=== PATIENT | male | born 1945 | race Two or more races ===

== ENCOUNTER 2020-04-10 20:27 | Observation (INO) | payer MEDICAID, MEDICARE, OTHER ==
[~2020-04-10] VITALS: Ht 165.1 cm; Wt 69.0 kg
[2020-04-10] MEDS ORDERED: CEFTRIAXONE PMX 1GM/50ML 50 ML IV ONE (21:00)
[2020-04-10] MEDS ORDERED: VANCOMYCIN PER PHARMACY MC PRN ×2 (21:00→23:00)
[2020-04-10] MEDS ORDERED: MORPHINE SULFATE 4 MG/ML, 1ML IVPush PRN (21:00)
[2020-04-10] MEDS ORDERED: ONDANSETRON 2MG/ML, 2ML IVPush ONE (21:00)
[2020-04-10] MEDS ORDERED: ONDANSETRON 2MG/ML, 2ML ONE (21:25)
[2020-04-10] MEDS ORDERED: CEFTRIAXONE PMX 1GM/50ML 50 ML ONE (21:25)
[2020-04-10] MEDS ORDERED: MORPHINE SULFATE 4 MG/ML, 1ML ONE (21:26)
[2020-04-10] MEDS ORDERED: VANCOMYCIN 1,700 MG in SODIUM CHLORIDE 0.9% 250 ML IV ONE (21:30)
[2020-04-10 21:32] LABS: BASOPHILS % (AUTO) 0 % (0-1); EOSINOPHILS % (AUTO) 1 % (1-7); LYMPHOCYTES % (AUTO) 13 % (22-44); MEAN CORPUSCULAR HEMOGLOBIN 34.3 pg (27.5-34.5); MEAN CORPUSCULAR HGB CONC 34.2 g/dL (33.2-36.2); MEAN PLATELET VOLUME 9.4 fL (7.4-10.4); MONOCYTES % (AUTO) 15 % (2-9); NEUTROPHILS % (AUTO) 71 % (42-75); PLATELET COUNT 180 x10^3/uL (130-400); RED BLOOD COUNT 3.61 x10^6/uL (4.38-5.82); RED CELL DISTRIBUTION WIDTH 13.8 % (9.4-14.8)
[2020-04-10 21:36] LABS: MD NO
[2020-04-10 21:38] LABS: ALBUMIN 3.9 g/dL (3.4-5.0); ANION GAP 8 mmol/L (5-15); CALCIUM 8.8 mg/dL (8.5-10.1); CHLORIDE 107 mmol/L (98-107); CREATININE 0.84 mg/dL (0.7-1.3)
[2020-04-10] MEDS ORDERED: SIMV40TA20 PO (21:58)
[2020-04-10] MEDS ORDERED: ASPI-963 PO (21:58)
[2020-04-10] MEDS ORDERED: IBUP-1902 PO (21:58)
[2020-04-10] MEDS ORDERED: OMEP-110 PO (21:58)
[2020-04-10] MEDS ORDERED: METF500T17 PO (21:58)
[2020-04-10] MEDS ORDERED: HYDR-3237 PO (21:58)
[2020-04-10] MEDS ORDERED: LIDO700A20 TD (21:58)
[2020-04-10] MEDS ORDERED: LOSA50TA14 PO (21:58)
[2020-04-10] MEDS ORDERED: SENN1TAB94 PO (21:58)
--- NOTE | 2020-04-10 22:26 | NUR ---
HOSPITALIST AT BEDSIDE WITH RN LOSS PREVENTION AND SAFETY MANAGER, REPORT CALLED TO [facility] ON FLOOR, READY TO RECIEVE PT.
[2020-04-10] MEDS ORDERED: SODIUM CHLORIDE NASAL SPRAY 45ML BOTTLE NAS PRN (22:30)
[2020-04-10] MEDS ORDERED: ENALAPRILAT 1.25 MG/ML, 2ML IVPush PRN (23:00)
[2020-04-10] MEDS ORDERED: ACETAMINOPHEN 325 MG TABLET PO PRN (23:00)
[2020-04-10] MEDS ORDERED: LABETALOL 5MG/ML, 20ML IVPush PRN (23:00)
[2020-04-10] MEDS ORDERED: DEXTROSE 4 GM TAB.CHEW PO PRN (23:00)
[2020-04-10] MEDS ORDERED: DEXTROSE 50%, 50ML SYRINGE IVPush PRN (23:00)
[2020-04-10] MEDS ORDERED: GLUCAGON 1 MG IM PRN (23:00)
[2020-04-10 23:18] VITALS: BP 125/70
[2020-04-10] MEDS ORDERED: PHARMACOKINETIC MONITORING MC PRN (23:30)
[2020-04-11 03:14] VITALS: BP 105/57
[2020-04-11 06:30] VITALS: BP 113/61
[2020-04-11] MEDS: INSULIN LISPRO 100 UNITS/ML, PEN SQ-INSULIN SCH ×2 (07:00→10:23)
[2020-04-11] MEDS: HEPARIN 5,000 UNITS/ML, 1ML SQ SCH ×2 (08:24)
[2020-04-11] MEDS ORDERED: ASPIRIN 81 MG TABLET EC PO SCH (09:00)
[2020-04-11] MEDS ORDERED: LOSARTAN 50MG TABLET PO SCH (09:00)
[2020-04-11] MEDS ORDERED: OMEPRAZOLE 20 MG CAPSULE.DR PO SCH (09:00)
[2020-04-11] MEDS ORDERED: SENNA/DOCUSATE TABLET PO SCH (09:00)
[2020-04-11] MEDS ORDERED: SODIUM CHLORIDE FLUSH 10ML SYR IVF SCH (09:00)
[2020-04-11] MEDS ORDERED: SULF1TAB24 PO (10:47)
[2020-04-11] MEDS ORDERED: SIMVASTATIN 40 MG TABLET PO SCH (21:00)
== END 2020-04-11 12:25 | disposition home or self-care (01) ==
LOC: ED 21:34 → INTOOBSV 22:45 → EDIP 22:45 → 4NE 22:47
PROVIDERS: ADMIT Student in an Organized Health Care Education/Training Program; ATTEND Student in an Organized Health Care Education/Training Program
DX: L03.114 Cellulitis of left upper limb (principal); E11.9 Type 2 diabetes mellitus without complications; C90.00 Multiple myeloma not having achieved remission; I10 Essential (primary) hypertension; E78.5 Hyperlipidemia, unspecified; K21.9 Gastro-esophageal reflux disease without esophagitis; D84.9 Immunodeficiency, unspecified; Z79.84 Long term (current) use of oral hypoglycemic drugs; Z79.899 Other long term (current) drug therapy; Z86.14 Personal history of Methicillin resistant Staphylococcus aureus infection; Z79.82 Long term (current) use of aspirin
CPT/HCPCS: 36415; 80048; 82040; 82962; 85025; 87040; 96365; 96366; 96368; 96372; 96375; 99284; G0378; J0696; J1644; J2270; J2405; J3370; J7050

== ENCOUNTER 2020-05-15 14:05 | Outpatient (CLI) | payer MEDICARE ==
[~2020-05-15 14:05] MED LIST: ASPI-963 PO; HYDR-3237 PO; IBUP-1902 PO; LIDO700A20 TD; LOSA50TA14 PO; METF500T17 PO; OMEP-110 PO; SENN1TAB94 PO; SIMV40TA20 PO; SULF1TAB24 PO
== END 2020-05-15 23:59 | disposition home or self-care (01) ==
LOC: RAD 14:05
PROVIDERS: ATTEND Specialist
DX: C90.00 Multiple myeloma not having achieved remission (principal); I82.729 Chronic embolism and thrombosis of deep veins of unspecified upper extremity

== ENCOUNTER → 2020-06-22 | Outpatient (CLI) | payer MEDICARE ==
[~2020-06-22] MED LIST changes: +SULF-23 PO; -SULF1TAB24 PO
== END | disposition home or self-care (01) ==
LOC: RAD 14:32
PROVIDERS: ATTEND Specialist
DX: Z51.11 Encounter for antineoplastic chemotherapy (principal); C90.00 Multiple myeloma not having achieved remission; M79.605 Pain in left leg; Z79.899 Other long term (current) drug therapy

== ENCOUNTER 2020-06-25 07:34 | Emergency (ER) | payer MEDICARE ==
[~2020-06-25] VITALS: Ht 167.6 cm; Wt 69.3 kg
[2020-06-25 07:38] VITALS: BP 140/68
== END 2020-06-25 08:57 | disposition home or self-care (01) ==
LOC: ED 08:10
DX: J34.0 Abscess, furuncle and carbuncle of nose (principal); E11.9 Type 2 diabetes mellitus without complications; I10 Essential (primary) hypertension
CPT/HCPCS: 82962; 99282; 99283

== ENCOUNTER 2020-06-27 20:25 | Emergency (ER) | payer MEDICARE ==
[~2020-06-27] VITALS: Ht 165.1 cm; Wt 76.9 kg
--- NOTE | 2020-06-27 21:20 | NUR ---
Ender seen here and told he has a sinus infection but today still can't breathe. PT AMBULATE FROM LOBBY TO BED WITH STEADY GAIT. POSTIONED TO COMFORT. ATTACHED TO MONITORS. VSS. MAE. AWAITING ORDERS.
--- NOTE | 2020-06-27 21:24 | NUR ---
DR. PERRY TO BEDSIDE FOR EVALUATION WITH INTERPERTER.
[2020-06-27 22:06] LABS: BASOPHILS % (AUTO) 2 % (0-1); EOSINOPHILS % (AUTO) 3 % (1-7); LYMPHOCYTES % (AUTO) 33 % (22-44); MEAN CORPUSCULAR HEMOGLOBIN 33.9 pg (27.5-34.5); MEAN CORPUSCULAR HGB CONC 33.5 g/dL (33.2-36.2); MEAN PLATELET VOLUME 9.4 fL (7.4-10.4); MONOCYTES % (AUTO) 27 % (2-9); NEUTROPHILS % (AUTO) 35 % (42-75); PLATELET COUNT 158 x10^3/uL (130-400); RED CELL DISTRIBUTION WIDTH 13.6 % (9.4-14.8)
[2020-06-27 22:11] LABS: MD NO
[2020-06-27 22:12] LABS: ALANINE AMINOTRANSFERASE 28 U/L (12-78); ALBUMIN 4.1 g/dL (3.4-5.0); ANION GAP 4 mmol/L (5-15); CALCIUM 8.8 mg/dL (8.5-10.1); CHLORIDE 106 mmol/L (98-107); CREATININE 0.87 mg/dL (0.7-1.3)
[2020-06-27 22:16] LABS: ALKALINE PHOSPHATASE 101 U/L (45-117); BILIRUBIN,TOTAL 0.3 mg/dL (0.2-1.0); TOTAL PROTEIN 6.9 g/dL (6.4-8.2); TROPONIN I < 0.015 ng/mL (0.000-0.045)
--- NOTE | 2020-06-27 22:40 | NUR ---
pt asleep with even and unlabored respirations. vss. jannn
[2020-06-28 00:11] VITALS: BP 145/76
--- NOTE | 2020-06-28 00:35 | NUR ---
Patient/Caregiver given discharge instructions and they have confirmed that they understand the instructions. Patient ambulatory with steady gait.
== END 2020-06-28 00:36 | disposition home or self-care (01) ==
LOC: ED 23:53
DX: R06.00 Dyspnea, unspecified (principal); R09.81 Nasal congestion; J00 Acute nasopharyngitis [common cold]; R07.9 Chest pain, unspecified; I10 Essential (primary) hypertension; E11.9 Type 2 diabetes mellitus without complications
CPT/HCPCS: 36415; 71045; 80053; 83880; 84484; 85025; 93005; 99285

== ENCOUNTER 2020-06-28 19:01 | Emergency (ER) | payer MEDICARE ==
[~2020-06-28] VITALS: Ht 165.1 cm; Wt 67.4 kg
--- NOTE | 2020-06-28 19:39 | NUR ---
PT. IS A & O X 4 WITH A GCS OF 15 WITH C/O BACK BOTTOM RIGHT MOUTH PAIN AFTER HAVING A TOOTH EXTRACTED TODAY. PT. IS RESTING WITHOUT CONCERNS. HE STATES HE IS TAKING AMOXICILLIN FOR ANTIBIOTICS. PT. IS AMBULATORY AND HAS NO FURTHER CONCERNS AT THIS TIME.
--- NOTE | 2020-06-28 20:19 | NUR ---
PT. WAS GIVEN AN ICE PACK FOR HIS LOWER JAW.
--- NOTE | 2020-06-28 20:49 | NUR ---
PT. WAS GIVEN DISCHARGE INSTRUCTIONS BY THE PROVIDER. UNDERSTANDING VERBALIZED ALONG WITH WILLINGNESS TO COMPLY. PT. WAS AMBULATORY TO THE DISCHARGE DESK.
[2020-06-28 20:51] VITALS: BP 130/70
== END 2020-06-28 20:53 | disposition home or self-care (01) ==
LOC: ED 19:51
DX: K08.89 Other specified disorders of teeth and supporting structures (principal); I10 Essential (primary) hypertension; E11.9 Type 2 diabetes mellitus without complications
CPT/HCPCS: 99281